=== PATIENT | female | born 1995 | race Caucasian/White ===

== ENCOUNTER 2016-09-14 20:52 | Emergency (ER) | payer SELFPAY ==
[2016-09-14 21:07] VITALS: TEMP 99.8; O2SAT 98
[2016-09-14] MEDS ORDERED: ONDANSETRON INJ 4 MG/2 ML VIAL IV ONE (21:36)
--- NOTE | 2016-09-14 21:38 | ED.PDOC ---
History of Present Illness - General Chief Complaint: Abdominal Pain Stated Complaint: RLQ pain, nausea, diarrhea, painful urination Time Seen by Provider: 09/14/16 21:00 Source: patient Exam Limitations: no limitations - History of Present Illness Initial Comments: Patient presents with RLQ pain for two days. It is constant but intermittent in intensity. She has had nausea for a week but no vomiting. She has had multiple episodes of non-bloody diarrhea for 4-5 days. Has had a cholecystectomy. Denies fever. No other complaints. Timing/Duration: other - two days Severity: moderate Improving Factors: nothing Worsening Factors: nothing Associated Symptoms: other - see HPI Allergies/Adverse Reactions: Allergies Cefaclor [From Ceclor] Allergy (Verified 09/14/16 21:07) Home Medications: Ambulatory Orders NK [NK] 09/14/16 Review of Systems - Review of Systems Constitutional: States: no symptoms reported EENTM: States: no symptoms reported Respiratory: States: no symptoms reported Cardiology: States: no symptoms reported Gastrointestinal/Abdominal: States: see HPI Genitourinary: States: no symptoms reported Musculoskeletal: States: no symptoms reported Skin: States: no symptoms reported Neurological: States: no symptoms reported Endocrine: States: no symptoms reported Hematologic/Lymphatic: States: no symptoms reported Past Medical History (General) - Patient Medical History Hx Seizures: No Hx Stroke: No Hx Dementia: No Hx Asthma: No Hx of COPD: No Hx Cardiac Disorders: No Hx Congestive Heart Failure: No Hx Pacemaker: No Hx Hypertension: No Hx Thyroid Disease: No Hx Diabetes: No Hx Gastroesophageal Reflux: No Hx Renal Disease: No Hx Cancer: No Hx of HIV: No Hx Hepatitis C: No Hx MRSA: No Surgical History: cholecystectomy - Vaccination History Hx Tetanus, Diphtheria Vaccination: Yes Hx Influenza Vaccination: Yes Hx Pneumococcal Vaccination: No Immunizations Up to Date: Yes - Social History Hx Tobacco Use: Yes Hx Chewing Tobacco Use: No Hx Alcohol Use: No Hx Substance Use: No Hx Substance Use Treatment: No Hx Depression: No Feels Threatened In Home Enviroment: No Feels Threatened In a Relationship: No Hx Physical Abuse: No Hx Emotional Abuse: No Hx Suspected Abuse: No - Female History Patient is a Female of Child Bearing Age (10 -59 yrs old): Yes Hx Last Menstrual Period: 09/08/16 Patient : No Family Medical History - Family History Father Family History: No Known Living Status: Still Living Physical Exam - Physical Exam General Appearance: Alert Respiratory: lungs clear Cardiovascular/Chest: normal peripheral pulses, regular rate, rhythm Gastrointestinal/Abdominal: normal bowel sounds, soft, other - Mildly TTP over RLQ. NABS Skin Exam: normal color Progress - Progress Progress: 09/15/16 00:10 CRP 1.[address] abdomen/pelvis showed 1 cm appendix with some adenitis but no clear appendicitis. Patient was given a choice to stay overnight or go home and follow up with Dr. Hargrove in the morning. Show chose to go home. She was given approximately 750 cc of NS IV but decided she was too tired to stay for the full liter. Also given zofran 4 mg IV x one. Laboratory Tests 09/14/16 09/14/16 09/14/16 21:01 21:07 21:10 WBC 8.2 RBC 4.40 Hgb 13.3 Hct 39.5 MCV 89.8 MCH 30.3 MCHC 33.7 RDW 13.3 Plt Count 198 MPV 10.0 Absolute Neuts (auto) 5.30 Absolute Lymphs (auto) 2.10 Absolute Monos (auto) 0.60 Absolute Eos (auto) 0.10 Absolute Basos (auto) 0.00 Neutrophils % 64.5 Lymphocytes % 25.7 Monocytes % 7.7 Eosinophils % 1.6 Basophils % 0.5 Sodium Potassium Chloride Carbon Dioxide Anion Gap BUN Creatinine BUN/Creatinine Ratio Random Glucose Serum Osmolality Calcium Total Bilirubin AST ALT Alkaline Phosphatase C-Reactive Protein Serum Total Protein Albumin Globulin Albumin/Globulin Ratio Lipase Urine Color Yellow Urine Appearance Clear Urine pH 5.5 Ur Specific [place] >= 1.030 Urine Protein Trace Urine Glucose (UA) Negative Urine Ketones Negative Urine Blood Negative Urine Nitrite Negative Urine Bilirubin Negative Urine Urobilinogen 0.2 Ur Leukocyte Esterase Negative Urine RBC 0 Urine WBC 1-3 Ur Epithelial Cells 3-5 Urine Bacteria Rare Urine Mucus Moderate Urine HCG, Qual Negative 09/14/16 21:10 WBC RBC Hgb Hct MCV MCH MCHC RDW Plt Count MPV Absolute Neuts (auto) Absolute Lymphs (auto) Absolute Monos (auto) Absolute Eos (auto) Absolute Basos (auto) Neutrophils % Lymphocytes % Monocytes % Eosinophils % Basophils % Sodium 142 Potassium 4.0 Chloride 107 Carbon Dioxide 26 Anion Gap 13.0 BUN 11 Creatinine 0.75 BUN/Creatinine Ratio 14.7 Random Glucose 110 H Serum Osmolality 283.2 Calcium 9.2 Total Bilirubin 0.4 AST 14 ALT 12 Alkaline Phosphatase 61 C-Reactive Protein 1.2 H Serum Total Protein 7.3 Albumin 4.3 Globulin 3.0 Albumin/Globulin Ratio 1.4 Lipase 28 Urine Color Urine Appearance Urine pH Ur Specific [place] Urine Protein Urine Glucose (UA) Urine Ketones Urine Blood Urine Nitrite Urine Bilirubin Urine Urobilinogen Ur Leukocyte Esterase Urine RBC Urine WBC Ur Epithelial Cells Urine Bacteria Urine Mucus Urine HCG, Qual Departure - Departure Clinical Impression: Abdominal pain, Diarrhea Disposition: Discharge to Home or Self Care Condition: Good Departure Forms: ED Discharge - Pt. Copy, Patient Portal Self Enrollment Instructions: DI for Abdominal Pain-Adult Diet: resume usual diet Activity: increase activity as tolerated Referrals: Alfredo Hargrove III, MD [Primary Care Provider] - 1-2 Weeks Home Medications: Ambulatory Orders NK [NK] 09/14/16 Additional Instructions: Increase oral fluids. See Dr. Hargrove in the morning for follow up. Return to the E.R. immediately for increasing pain, fever, or inability to eat.
--- NOTE | 2016-09-14 22:34 | CT ---
EXAM DESCRIPTION: Abdomen/Pelvis w/Contrast CLINICAL HISTORY: 21 years Female RLQ pain COMPARISON: None. TECHNIQUE: Contiguous axial images obtained through the abdomen and pelvis following IV contrast. Reformatted images obtained. This exam was performed according to our department optimization program which includes automated exposure control, adjustment of the mA and/or kv according to patient size and/or use of iterative reconstruction technique. FINDINGS: Fatty infiltration of the liver. Spleen is mildly enlarged measuring 13.2 cm. Unremarkable pancreas. No adrenal masses. The kidneys appear unremarkable. No hydronephrosis. The gallbladder is absent. No aneurysmal dilatation of the aorta. No bowel obstruction. The appendix is mildly dilated measuring up to 1 cm. There is no definite inflammatory change. There are scattered mesenteric and right lower quadrant lymph nodes which may reflect adenitis. There is no evidence of free fluid in the pelvis of the right lower quadrant.. IMPRESSION: The appendix measures 1 cm without obvious wall thickening or surrounding inflammation. This may represent a normal variant for this patient but the possibility of developing appendicitis is not excluded. Recommend clinical correlation and correlation with laboratory values. Follow-up imaging could also be acquired if indicated Scattered mesenteric lymph nodes which may reflect mesenteric adenitis No free fluid Electronically signed by: Wilma Julian 09/14/2016 10:32 PM CDT
[2016-09-14] MEDS ORDERED: SODIUM CHLORIDE 0.9% 1000ML 1,000 ML IVS ONE (23:08)
[2016-09-15 00:50] VITALS: BP 108/67
== END 2016-09-15 00:50 | disposition home or self-care (01) ==
LOC: ER 20:52
DX: R10.9 Unspecified abdominal pain (principal); R19.7 Diarrhea, unspecified; Z87.891 Personal history of nicotine dependence; Z88.3 Allergy status to other anti-infective agents
CPT/HCPCS: 36415; 74177; 80053; 81001; 81025; 83690; 85025; 86140; J2405; J7030

== ENCOUNTER 2017-03-27 17:48 | Emergency (ER) | payer OTHER ==
[2017-03-27 19:58] VITALS: O2SAT 97
--- NOTE | 2017-03-27 20:02 | ED.PDOC ---
History of Present Illness - General Chief Complaint: General Stated Complaint: Pt reports she passed out after having a BM Time Seen by Provider: 03/27/17 17:56 Source: patient Exam Limitations: no limitations - History of Present Illness Initial Comments: the patient is a 21-year-old female presenting to the emergency room after a syncopal episode. The patient went to the bathroom and had a bowel movement then stood up and got dizzy and passed out on her bed. No any known trauma from the fall. No loss of fluid and no vaginal bleeding. She is feeling the child moved. She was feeling fine prior. She does have a history of some mild anemia. No urinary symptoms. No fever. No runny nose cough or congestion. No previous syncopal episodes. She feels fine now. She did not bite her tongue or have any incontinence. Timing/Duration: momentarily Severity: moderate Improving Factors: nothing Worsening Factors: nothing Associated Symptoms: denies symptoms Allergies/Adverse Reactions: Allergies Cefaclor [From Ceclor] Allergy (Verified 03/27/17 18:07) Rash Home Medications: Ambulatory Orders NK [NK] 09/14/16 Nitrofurantoin Macrocrystal [Nitrofurantoin Macrocryst] 100 mg PO BID #14 cap Review of Systems - Review of Systems Constitutional: States: no symptoms reported EENTM: States: no symptoms reported Respiratory: States: no symptoms reported Cardiology: States: no symptoms reported Gastrointestinal/Abdominal: States: no symptoms reported Genitourinary: States: no symptoms reported Musculoskeletal: States: no symptoms reported Skin: States: no symptoms reported Neurological: States: other - yncope Endocrine: States: no symptoms reported All other Systems: No Change from Baseline Past Medical History (General) - Patient Medical History Hx Seizures: No Hx Stroke: No Hx Dementia: No Hx Asthma: No Hx of COPD: No Hx Cardiac Disorders: No Hx Congestive Heart Failure: No Hx Pacemaker: No Hx Hypertension: No Hx Thyroid Disease: No Hx Diabetes: No Hx Gastroesophageal Reflux: No Hx Renal Disease: No Hx Cancer: No Hx of HIV: No Hx Hepatitis C: No Hx MRSA: No Surgical History: cholecystectomy - Vaccination History Hx Tetanus, Diphtheria Vaccination: Yes Hx Influenza Vaccination: Yes - 2017 Hx Pneumococcal Vaccination: No - Social History Hx Tobacco Use: No Hx Chewing Tobacco Use: No Hx Alcohol Use: No Hx Substance Use: No Hx Substance Use Treatment: No Hx Depression: No Hx Physical Abuse: No Hx Emotional Abuse: No Hx Suspected Abuse: No - Female History Patient is a Female of Child Bearing Age (10 -59 yrs old): Yes Hx Last Menstrual Period: 09/08/16 Patient : No Expected Date of Delivery:: 08/23/17 Family Medical History - Family History Father Family History: No Known Living Status: Still Living Physical Exam - Physical Exam General Appearance: Alert, Comfortable, No apparent distress Eye Exam: bilateral normal Ears, Nose, Throat: hearing grossly normal, normal ENT inspection, normal pharynx Neck: full range of motion, supple Respiratory: lungs clear, normal breath sounds, no respiratory distress, no accessory muscle use Cardiovascular/Chest: normal peripheral pulses, regular rate, rhythm, no edema Peripheral Pulses: radial,right: 2+, radial,left: 2+, dorsalis pedis,right: 2+, dorsalis pedis,left: 2+ Gastrointestinal/Abdominal: non tender - gravid, soft Rectal Exam: deferred Back Exam: normal inspection, no CVA tenderness Extremity: normal range of motion, non-tender, normal inspection, no pedal edema , normal capillary refill Neurologic: specification writer II-XII nml as tested, no motor/sensory deficits, alert, normal mood/affect, oriented x 3 Skin Exam: normal color Comments: Vital Signs - 24 hr 03/27/17 03/27/17 03/27/17 18:02 19:46 19:52 Temperature 98.8 F Pulse Rate [ 82 77 77 Left Radial] Respiratory 20 20 20 Rate Blood Pressure 114/77 103/67 104/71 [Left Arm] O2 Sat by Pulse 96 96 96 Oximetry 03/27/17 19:57 Temperature Pulse Rate [ 79 Left Radial] Respiratory 20 Rate Blood Pressure 105/70 [Left Arm] O2 Sat by Pulse 97 Oximetry tilt vital signs are within normal limits. Progress - Progress Progress: 03/27/17 20:21 The patient's a 21-year-old female 19 weeks gestational age by report. The patient presents after a syncopal episode that is likely vasovagal syncope. no trauma appears to have occurred due to the syncope. She is to keep her self well-hydrated. She needs to hold onto something for a good 30 seconds after she goes to the bathroom before she takes off. Her blood pressures do seem to be low-normal at baseline. She does have what appears to be a small urinary tract infection and will be placed on Macrobid twice a day for 7 days. She does need to follow up with her mica plate layer next week and have a repeat urinalysis. Urine culture will be set up here in case she is not clearing. ER warnings are given for any recurrence. If the issue does recur then she may require additional workup. 03/27/17 20:28 - Results/Orders Results/Orders: EKG showed normal sinus rhythm at a rate of 79 bpm. She does have a mildly shortened MT interval. No acute ST segment changes concerning for ischemia. No bundle branch blocks. Normal QT interval. Normal axis. Laboratory Tests 03/27/17 03/27/17 03/27/17 18:34 18:34 19:12 WBC 9.2 RBC 3.70 L Hgb 11.4 L Hct 34.0 L MCV 92.1 MCH 30.8 MCHC 33.5 RDW 13.8 Plt Count 161 MPV 10.1 Absolute Neuts (auto) 7.00 H Absolute Lymphs (auto) 1.50 Absolute Monos (auto) 0.60 Absolute Eos (auto) 0.10 Absolute Basos (auto) 0.00 Neutrophils % 75.9 Lymphocytes % 16.1 L Monocytes % 6.6 Eosinophils % 1.1 Basophils % 0.3 Sodium 137 Potassium 3.5 L Chloride 109 Carbon Dioxide 22 Anion Gap 9.5 L BUN 8 Creatinine 0.61 BUN/Creatinine Ratio 13.1 Random Glucose 110 H Serum Osmolality 272.8 L Calcium 8.9 Magnesium 1.9 Total Bilirubin 0.4 AST 11 ALT 12 Alkaline Phosphatase 38 L Creatine Kinase 18 L CK-MB (CK-2) 0.3 Troponin I < 0.02 B-Natriuretic Peptide 24.3 Serum Total Protein 6.4 Albumin 3.3 Globulin 3.1 Albumin/Globulin Ratio 1.1 TSH 1.25 Urine Color Yellow Urine Appearance Sl cloudy Urine pH 6.0 Ur Specific [place] 1.015 Urine Protein Negative Urine Glucose (UA) Negative Urine Ketones Negative Urine Blood Negative Urine Nitrite Negative Urine Bilirubin Negative Urine Urobilinogen 0.2 Ur Leukocyte Esterase Trace H Urine RBC 0-1 Urine WBC 5-10 H Ur Epithelial Cells 5-10 Amorphous Sediment 1+ Urine Bacteria 1+ Departure - Departure Clinical Impression: Cystitis Syncope Qualifiers: Syncope type: vasovagal syncope Qualified Code(s): R55 - Syncope and collapse Disposition: Discharge to Home or Self Care Condition: Fair Departure Forms: ED Discharge - Pt. Copy, Patient Portal Self Enrollment Instructions: DI for Syncope in Adults (Fainting), DI for Acute Cystitis Diet: regular diet Activity: increase activity as tolerated Referrals: Alfredo Hargrove III, MD [Primary Care Provider] - 1-2 Weeks Prescriptions: Nitrofurantoin Macrocrystal [Nitrofurantoin Macrocryst] 100 mg PO BID #14 cap Home Medications: Ambulatory Orders NK [NK] 09/14/16 Nitrofurantoin Macrocrystal [Nitrofurantoin Macrocryst] 100 mg PO BID #14 cap Additional Instructions: The patient's a 21-year-old female 19 weeks gestational age by report. The patient presents after a syncopal episode that is likely vasovagal syncope. no trauma appears to have occurred due to the syncope. She is to keep her self well-hydrated. She needs to hold onto something for a good 30 seconds after she goes to the bathroom before she takes off. Her blood pressures do seem to be low-normal at baseline. She does have what appears to be a small urinary tract infection and will be placed on Macrobid twice a day for 7 days. She does need to follow up with her mica plate layer next week and have a repeat urinalysis. Urine culture will be set up here in case she is not clearing. ER warnings are given for any recurrence. If the issue does recur then she may require additional workup.
[2017-03-27] MEDS ORDERED: NITROFURANTOIN MONOHYDRATE MAC 100 MG CAP PO ONE (20:27)
[2017-03-27 20:48] VITALS: BP 109/72; TEMP 97.9
== END 2017-03-27 19:45 | disposition home or self-care (01) ==
LOC: ER 17:48
DX: O23.12 Infections of bladder in pregnancy, second trimester (principal); Z3A.19 19 weeks gestation of pregnancy; R55 Syncope and collapse

== ENCOUNTER 2019-04-30 22:05 | Emergency (ER) | payer SELFPAY | END 2019-04-30 22:10 | disposition left against medical advice (07) | LOC: ER 22:05 | DX: R10.9 Unspecified abdominal pain (principal); Z53.21 Procedure and treatment not carried out due to patient leaving prior to being seen by health care provider ==